=== PATIENT | female | born 1950 | race Caucasian/White ===

== ENCOUNTER 2016-09-14 13:22 | Emergency (ER) | payer MEDICARE ==
[2016-09-14 14:10] LABS: ABSOLUTE NEUTROPHIL COUNT 3.8 K/mm3 (1.8-7.7); BASO % 0.7 % (0.2-1.0); EOS # 0.2 (0.0-0.5); EOS % 2.6 % (0.9-2.9); HEMATOCRIT 42.6 % (37.0-47.0); HEMOGLOBIN 13.8 gm/l (12.0-16.0); IMM NEUT% 0.2 % (0-1); LYMPH # 1.2 (1.0-4.8); LYMPH % 21.8 % (15-45); MEAN CELL VOLUME 96.6 fl (81.0-99.0); MEAN CORPUSCULAR HEMOGLOBIN 31.3 pg (27.0-31.0); MEAN CORPUSCULAR HGB CONC 32.4 g/dl (33.0-37.0); MEAN PLATELET VOLUME 8.3 fl (7.4-10.4); MONO # 0.5 (0.0-0.8); MONO % 8.3 % (4-12); NEUT % 66.4 % (43-75); PLATELET COUNT 252 K/mm3 (130-400)
[2016-09-14 14:15] LABS: INR 1.29; PROTHROMBIN TIME 13.8 SECONDS (9.3-11.4)
[2016-09-14 14:26] LABS: ALB/GLOB RATIO 1.5 (>1.0); ALBUMIN 4.3 gm/dL (3.5-5.7); CALCIUM 9.5 mg/dL (8.6-10.3); MAGNESIUM 2.2 mg/dL (1.9-2.7)
== END 2016-09-14 17:00 | disposition home or self-care (01) ==
LOC: ED 13:22
DX: R00.2 Palpitations (principal); I47.1 Supraventricular tachycardia; Z86.718 Personal history of other venous thrombosis and embolism; Z79.01 Long term (current) use of anticoagulants